=== PATIENT | female | born 1995 | race Caucasian/White ===

== ENCOUNTER 2022-02-01 20:22 | Inpatient (IN) | payer OTHER ==
[~2022-02-01] VITALS: Ht 165.1 cm; Wt 86.4 kg
[2022-02-01] VITALS (11 sets, daily range): BP systolic 132–186; BP diastolic 64–97; PULSE 85–101
--- NOTE | 2022-02-01 20:28 | NUR ---
ambulatory to unit for labor assessment, accompanied by significant other and pt's mother. Pt reports contractions off and on since last night, every 5 min since 1900. Oriented to room, monitor, plan of care.
--- NOTE | 2022-02-01 20:40 | NUR ---
Discussed concerns about BP's with pt and family. Pt informed I would call distillation operator helper physician for orders. 2204 Updated pt and family on plan of care. IV fluids, lab work, need for urine specimen. Possible admission and induction. Pt states "I can't pee right now. I peed before we left home and right when I got here."
[2022-02-01 21:29] LABS: BASO # 0.1 K/mm3 (0.0-0.2); BASO % 0.4 % (0.0-2.0); EOS # 0.1 K/mm3 (0.0-0.7); EOS % 0.8 % (0.0-4.0); GRAN # 10.6 K/mm3 (1.4-6.5); GRAN % 85.1 % (42.2-75.2); HEMOGLOBIN 12.2 g/dl (12.5-16.0); LYMPH # 1.1 K/mm3 (1.2-3.4); LYMPH % 8.7 % (20.0-51.0); MEAN CELL VOLUME 83 fl (80.0-100.0); MEAN CORPUSCULAR HEMOGLOBIN 28 pg (27-31); MEAN CORPUSCULAR HGB CONC 34 g/dl (33.0-37.0); MEAN PLATELET VOLUME 10.6 fl (7.4-10.4); MONO # 0.6 K/mm3 (0.1-0.6); MONO % 4.6 % (1.7-9.3); PLATELET COUNT 269 K/mm3 (130-400); RED BLOOD COUNT 4.37 M/mm3 (4.10-5.30); REDCELL DISTRIBUTION WIDTH-CV 13.9 % (11.5-14.5)
[2022-02-01 21:35] LABS: HEMATOCRIT 36.1 % (37.0-47.0)
--- NOTE | 2022-02-01 21:40 | NUR ---
On nurse's return to desk after starting IV and obtaining labs, when acknowledging orders, admission and induction orders noted to have been put in by Dr Selby from home without informing this RN.
[2022-02-01 21:46] LABS: BILIRUBIN,TOTAL 0.3 mg/dL (0.2-1.2); CREATININE, serum 0.78 mg/dL (0.57-1.11); POTASSIUM 3.5 mmol/L (3.5-4.5); TOTAL PROTEIN 7.3 gm/dL (6.2-8.1)
[2022-02-01 22:34] LABS: MUCOUS Present (NOT PRESENT); SQUAMOUS EPITHELIAL 0-2 /hpf (0-10); URINE BACTERIA None Seen /hpf (NONE SEEN); URINE RBC 0-2 /hpf (0-2)
[2022-02-01 22:35] LABS: COLLECTION METHOD CLEAN CATCH
[2022-02-01 22:36] LABS: PH 5.5 (5.0-8.5); URINE APPEARANCE Clear (CLEAR/HAZY); URINE BLOOD TRACE-LYSED (NEGATIVE); URINE COLOR Yellow (YELLOW); URINE GLUCOSE Negative (NEGATIVE); URINE KETONE Negative (NEGATIVE); URINE NITRATE Negative (NEGATIVE); URINE PROTEIN(semi-quant) Negative (NEGATIVE); URINE UROBILINOGEN 0.2 E.U/dL (0.2-1.0)
[2022-02-02] VITALS (48 sets, daily range): BP systolic 124–194; BP diastolic 51–100; PULSE 62–136; TEMP 98–99.9
[2022-02-02] MEDS ORDERED: PRENATAL TABLET PO (00:39)
[2022-02-02] MEDS ORDERED: VALTREX1 GM PO (00:40)
--- NOTE | 2022-02-02 03:00 | NUR ---
Sitting on edge of bed. To supine for SVE. Pt reports "when I lay down the ontractions get farther apart and not as strong. It definitely makes a difference standing up or sitting on the ball" Significant other attentive at bedside, assists with position changes.
--- NOTE | 2022-02-02 03:50 | NUR ---
FHT's baseline to 160's. LR to bolus. Pt temp 98.5, pt to bed in [facility].
--- NOTE | 2022-02-02 05:45 | NUR ---
Sitting on peanut ball. Denies vaginal pressure or increase in strength of contractions. States "I'm just tired"
--- NOTE | 2022-02-02 10:41 | NUR ---
1015-PT SITTING FOR EPIDURAL. UNABLE TO CONTINOUSLY MONITOR FHR. IV BOLUS INITIATED, PULSE OX ON, TIMEOUT COMPLETED.
--- NOTE | 2022-02-02 10:42 | NUR ---
1037-PT LAYING DOWN AFTER EPIDURAL PLACEMENT. PT TOLERATED PROCEDURE WELL. PT PAIN IMPROVING. FHR IN THE 140S AT THIS TIME.
--- NOTE | 2022-02-02 16:53 | NUR ---
1328-PT PUSHING WITH CONTRACTIONS. RN AND MD AT BEDSIDE CONTINOUSLY MONITORING FHR. FHR IN THE 160S AT THIS TIME. PT TOLERATING PUSHING WELL. HARRIS REMOVED WITH 300CC BAG. 1340- OF HEAD BY DR. ZHAO. 1340- OF BODY BY DR. ZHAO. 1343. OF PLACENTA PER DR. ZHAO. OXYTOCIN BOLUS INITIATED. PT STABLE AT THIS TIME.
[2022-02-03 01:00] VITALS: BP 114/65; PULSE 67; TEMP 97.6
[2022-02-03 06:30] LABS: HEMOGLOBIN 10.2 g/dl (12.5-16.0)
[2022-02-03] MEDS ORDERED: IBU600 MG PO (08:48)
[2022-02-03 09:45] VITALS: BP 120/64; PULSE 70; TEMP 98
--- NOTE | 2022-02-03 15:31 | NUR ---
1524-PT DISCHARGED HOME IN STABLE CONDITION WITH NO COMPLAINTS. RN EXPLAINED DISHCARGE INSTRUCTIONS. PT VERBALIZED UNDERSTANING. PT ESCORTED OFF UNIT VIA AMBULATION WITH L&D STAFF.
== END 2022-02-03 15:24 | disposition home or self-care (01) | DRG 806 ==
LOC: LDRO 20:22 → LDR 21:16 → OB 02-02 18:00
PROVIDERS: Obstetrics & Gynecology; ADMIT Obstetrics & Gynecology
PROC: 3E033VJ Introduction of Other Hormone into Peripheral Vein, Percutaneous Approach (ICD-10-PCS; 2022-02-01)
PROC: 10E0XZZ Delivery of Products of Conception, External Approach (ICD-10-PCS; principal; 2022-02-02)
PROC: 10907ZC Drainage of Amniotic Fluid, Therapeutic from Products of Conception, Via Natural or Artificial Opening (ICD-10-PCS; 2022-02-02)
DX: O13.4 Gestational [pregnancy-induced] hypertension without significant proteinuria, complicating childbirth (principal); O98.32 Other infections with a predominantly sexual mode of transmission complicating childbirth; Z37.0 Single live birth; O26.90 Pregnancy related conditions, unspecified, unspecified trimester; R00.0 Tachycardia, unspecified; O48.0 Post-term pregnancy; A60.09 Herpesviral infection of other urogenital tract; Z3A.41 41 weeks gestation of pregnancy
CPT/HCPCS: J2590; J7120